=== PATIENT | male | born 1985 | race Caucasian/White ===

== ENCOUNTER 2017-11-27 20:53 | Emergency (ER) | payer SELFPAY ==
--- NOTE | 2017-11-27 21:19 | EDPHYS ---
Physician Documentation [facility] Name: Zac Go Age: 32 yrs Sex: Male : 1985 Arrival Date: 11/27/2017 Time: 20:55 Bed 7 Private MD: ED Physician Jake Marin HPI: 11/27 22:00 This 32 yrs old Male presents to ER via Ambulatory with complaints of Rash. pm1 22:00 The patient's rash thought to be caused by an unknown cause. The rash is located on the pm1 right scapular area, right arm and left arm. The rash can be described as papular. Onset: The symptoms/episode began/occurred 1 week(s) ago. Associated signs and symptoms: Pertinent positives: itching, Pertinent negatives: burning sensation, difficulty breathing, fever, Pain swelling of lips, swelling of throat, swelling of tongue. Severity of symptoms: in the emergency department the symptoms have improved. Treatment given at home: steroid lotion/cream. The patient has been recently seen by a physician: 2 week(s) ago, Same complaint and given steroids. Rash at that time was worse. It was present on his forehead at that time. Historical: - Allergies: 21:10 Keflex; aj - Home Meds: 21:10 None [Active]; aj - PMHx: 21:10 None; aj - PSHx: 21:10 Cyst Removal from Ear; aj - Immunization history:: Last tetanus immunization: unknown. - Social history:: Smoking status: Patient uses tobacco products, smokes one-half pack cigarettes per day. - Ebola Screening: : Patient negative for fever greater than or equal to 101.5 degrees Fahrenheit, and additional compatible Ebola Virus Disease symptoms Patient denies exposure to infectious person Patient denies travel to an Ebola-affected area in the 21 days before illness onset No symptoms or risks identified at this time. ROS: 22:00 Constitutional: Negative for fever, chills, and weight loss, Eyes: Negative for injury, pm1 pain, redness, and discharge, ENT: Negative for injury, pain, and discharge, Neck: Negative for injury, pain, and swelling, Cardiovascular: Negative for chest pain, palpitations, and edema, Respiratory: Negative for shortness of breath, cough, wheezing, and pleuritic chest pain, Abdomen/GI: Negative for abdominal pain, nausea, vomiting, diarrhea, and constipation, Back: Negative for injury and pain, : Negative for injury, bleeding, discharge, and swelling, MS/Extremity: Negative for injury and deformity. 22:00 Skin: Positive for rash. Exam: 22:00 Constitutional: This is a well developed, well nourished patient who is awake, alert, pm1 and in no acute distress. Head/Face: Normocephalic, atraumatic. Eyes: Pupils equal round and reactive to light, extra-ocular motions intact. Lids and lashes normal. Conjunctiva and sclera are non-icteric and not injected. Cornea within normal limits. Periorbital areas with no swelling, redness, or edema. ENT: Nares patent. No nasal discharge, no septal abnormalities noted. Tympanic membranes are normal and external auditory canals are clear. Oropharynx with no redness, swelling, or masses, exudates, or evidence of obstruction, uvula midline. Mucous membranes moist. Neck: Trachea midline, no thyromegaly or masses palpated, and no cervical lymphadenopathy. Supple, full range of motion without nuchal rigidity, or vertebral point tenderness. No Meningismus. Chest/axilla: Normal chest wall appearance and motion. Nontender with no deformity. No lesions are appreciated. Cardiovascular: Regular rate and rhythm with a normal S1 and S2. No gallops, murmurs, or rubs. Normal PMI, no JVD. No pulse deficits. Respiratory: Lungs have equal breath sounds bilaterally, clear to auscultation and percussion. No rales, rhonchi or wheezes noted. No increased work of breathing, no retractions or nasal flaring. Abdomen/GI: Soft, non-tender, with normal bowel sounds. No distension or tympany. No guarding or rebound. No evidence of tenderness throughout. Back: No spinal tenderness. No costovertebral tenderness. Full range of motion. 22:00 Skin: Appearance: normal except for affected area, consistent with contact dermatitis. Vital Signs: 21:10 BP 134 / 91; Pulse 82; Resp 19; Temp 98.1; Pulse Ox 97% on R/A; Weight 108.86 kg; aj Height 6 ft. 4 in. (193.04 cm); 21:10 Body Mass Index 29.21 (108.86 kg, 193.04 cm) aj MDM: 21:12 Patient medically screened. pm1 21:18 Data reviewed: vital signs. Data interpreted: Pulse oximetry: on room air is 97 %. pm1 Interpretation: normal. Counseling: I had a detailed discussion with the patient and/or guardian regarding: the historical points, exam findings, and any diagnostic results supporting the discharge/admit diagnosis, the need for outpatient follow up, to return to the emergency department if symptoms worsen or persist or if there are any questions or concerns that arise at home. Administered Medications: 21:22 Drug: predniSONE 60 mg Route: PO; aa1 21:30 Follow up: Response: No adverse reaction; Medication administered at discharge. aa1 Disposition: 11/27/17 21:18 Discharged to Home. Impression: Rash and other nonspecific skin eruption. - Condition is Stable. - Discharge Instructions: Contact Dermatitis, Rash. - Prescriptions for Benadryl 25 mg Oral Capsule - take 1 capsule by ORAL route every 6 hours As needed; 30 tablet. Pepcid 20 mg Oral Tablet - take 1 tablet by ORAL route every 12 hours for 10 days; 20 tablet. Medrol (Rudolph) 4 mg Oral Tablets, Dose Pack - take 1 tablet by ORAL route as directed - follow package instructions; 1 packet. - Medication Reconciliation Form, Thank You Letter form. - Follow up: Emergency Department; When: As needed; Reason: Worsening of condition. Follow up: Private Physician; When: 2 - 3 days; Reason: Recheck today's complaints, Continuance of care, Re-evaluation by your physician. - Problem is new. - Symptoms have improved. Addendum: 11/28/2017 23:37 Co-signature as Attending Physician, Jake Marin MD. g s Signatures: Radha Holman RN RN aa1 Gosia Yang RN Erich Mitchell, [employer] SUPERVISOR [employer] SUPERVISOR pm1 Jake Marin MD MD Corrections: (The following items were deleted from the chart) 11/27 21:37 21:18 11/27/2017 21:18 Discharged to Home. Impression: Rash and other nonspecific skin aa1 eruption. Condition is Stable. Forms are Medication Reconciliation Form, Thank You Letter, Antibiotic Education, Prescription Opioid Use. Follow up: Emergency Department; When: As needed; Reason: Worsening of condition. Follow up: Private Physician; When: 2 - 3 days; Reason: Recheck today's complaints, Continuance of care, Re-evaluation by your physician. Problem is new. Symptoms have improved. pm1
--- NOTE | 2017-11-27 21:19 | ER ---
Nurse's Notes [facility] Name: Zac Go Age: 32 yrs Sex: Male : 1985 Arrival Date: 11/27/2017 Time: 20:55 Bed 7 Private MD: Diagnosis: Rash and other nonspecific skin eruption Presentation: 11/27 21:08 Presenting complaint: Patient states: Itchy rash to entire body for 2 weeks. Patient aj reports feeling irritation in back of throat today. Last took Benadryl at 0500 this AM. Transition of care: patient was not received from another setting of care. Onset of symptoms was November 13, 2017. Risk Assessment: Do you want to hurt yourself or someone else? Patient reports no desire to harm self or others. Initial Sepsis Screen: Does the patient meet any 2 criteria? No. Patient's initial sepsis screen is negative. Does the patient have a suspected source of infection? No. Patient's initial sepsis screen is negative. Care prior to arrival: None. 21:08 Method Of Arrival: Ambulatory 21:08 Acuity: REJI 4 aj Triage Assessment: 21:10 General: Appears in no apparent distress. comfortable, Behavior is calm, cooperative, aj appropriate for age. Pain: Denies pain. Neuro: Level of Consciousness is awake, alert, obeys commands, Oriented to person, place, time, situation, Appropriate for age. Respiratory: Airway is patent Respiratory effort is even, unlabored, Respiratory pattern is regular, symmetrical. Derm: Skin is intact, is healthy with good turgor, Skin is pink, warm \T\ dry. normal. Historical: - Allergies: 21:10 Keflex; aj - Home Meds: 21:10 None [Active]; aj - PMHx: 21:10 None; aj - PSHx: 21:10 Cyst Removal from Ear; aj - Immunization history:: Last tetanus immunization: unknown. - Social history:: Smoking status: Patient uses tobacco products, smokes one-half pack cigarettes per day. - Ebola Screening: : Patient negative for fever greater than or equal to 101.5 degrees Fahrenheit, and additional compatible Ebola Virus Disease symptoms Patient denies exposure to infectious person Patient denies travel to an Ebola-affected area in the 21 days before illness onset No symptoms or risks identified at this time. Screenin:15 Abuse screen: Denies threats or abuse. Denies injuries from another. Nutritional aa1 screening: No deficits noted. Tuberculosis screening: No symptoms or risk factors identified. Fall Risk None identified. Assessment: 21:15 General: Appears in no apparent distress. comfortable, Behavior is calm, cooperative, aa1 appropriate for age. Pain: Denies pain. Neuro: Level of Consciousness is awake, alert, obeys commands, Oriented to person, place, time, situation, Moves all extremities. Full function Gait is steady, Speech is normal. Respiratory: Airway is patent Respiratory effort is even, unlabored, Respiratory pattern is regular, symmetrical. GI: No signs and/or symptoms were reported involving the gastrointestinal system. : No signs and/or symptoms were reported regarding the genitourinary system. EENT: No signs and/or symptoms were reported regarding the EENT system. Derm: Skin is intact, is healthy with good turgor, Skin is pink, warm \T\ dry. Rash noted that is itchy, on right trapezius, right scapular area, dorsal aspect of right forearm and palmar aspect of right forearm Pt c/o itchy rash to R arm \T\ back. States it comes and goes. Very minimal irritation noted at this time however pt reports that it was worse previously. 21:35 Reassessment: Patient appears in no apparent distress at this time. Patient is alert, aa1 oriented x 3, equal unlabored respirations, skin warm/dry/pink. Discussed d/c \T\ f/u instructions with pt; denies questions or concerns at this time. Vital Signs: 21:10 BP 134 / 91; Pulse 82; Resp 19; Temp 98.1; Pulse Ox 97% on R/A; Weight 108.86 kg; aj Height 6 ft. 4 in. (193.04 cm); 21:10 Body Mass Index 29.21 (108.86 kg, 193.04 cm) aj ED Course: 20:55 Patient arrived in ED. ds1 21:09 Triage completed. aj 21:10 Arm band placed on right wrist. Patient placed in an exam room. aj 21:11 Abbi Angeles, MICHAEL is Primary Nurse. lp1 21:12 Erich Venegas NP is PHCP. pm1 21:12 Jake Marin MD is Attending Physician. pm1 21:15 Patient has correct armband on for positive identification. Bed in low position. Call aa1 light in reach. 21:35 No provider procedures requiring assistance completed. Patient did not have IV access aa1 during this emergency room visit. Administered Medications: 21:22 Drug: predniSONE 60 mg Route: PO; aa1 21:30 Follow up: Response: No adverse reaction; Medication administered at discharge. aa1 Outcome: 21:18 Discharge ordered by MD. pm1 21:35 Discharged to home ambulatory. aa1 21:35 Condition: good 21:35 Discharge instructions given to patient, Instructed on discharge instructions, follow up and referral plans. medication usage, Demonstrated understanding of instructions, follow-up care, medications, Prescriptions given X 3. 21:37 Patient left the ED. aa1 Signatures: Radha Holman RN RN aa1 Gosia Yang RN RN aj Sanford, Demi ds1 Abbi Angeles RN RN lp1 Erich Venegas, JAYLA S[employer]IOR [employer]ELOPER pm1
[2017-11-27] MEDS ORDERED: predniSONE 20 MG TAB ONE (21:26)
== END 2017-11-27 21:37 | disposition home or self-care (01) ==
LOC: ER 20:53
DX: R21 Rash and other nonspecific skin eruption (principal); F17.210 Nicotine dependence, cigarettes, uncomplicated; Z88.1 Allergy status to other antibiotic agents
CPT/HCPCS: 99283; J7512